=== PATIENT | female | born 1995 | race African-American/Black ===

== ENCOUNTER 2017-01-27 07:05 | Emergency (ER) | payer SELFPAY ==
[~2017-01-27] VITALS: Ht 170.2 cm; Wt 80.0 kg
[~2017-01-27 07:05] MED LIST: AMOX500T PO; Z.0.BCPILL PO
[2017-01-27 07:08] VITALS: BP 131/94; PULSE 88; RESP 16; TEMP 97.8; O2SAT 99
[2017-01-27] MEDS ORDERED: IBUP800T23 PO (07:42)
[2017-01-27] MEDS ORDERED: AMOX500C PO (07:42)
[2017-01-27] MEDS ORDERED: PERI0.126 SWISH-SPIT (07:42)
--- NOTE | 2017-01-27 07:43 | PD ---
HPI Chief Complaint: Oral / Dental Pain or Problem Time Seen by Provider: 07:39 Travel History International Travel<30 days: No Contact w/Intl Traveler<30days: No Traveled to known affect area: No History of Present Illness HPI 22-year-old female presents emergency Department with complaint of left upper dental pain 1 week. Also complaining of sore throat. Reports subjective fevers yesterday. Reports vomiting 2 days ago 1. No vomiting since. Denies lump in throat, difficulty swallowing, unusual drooling. No visual facial edema or erythema. Has been taking BC powder for symptom management. No known allergies. Symptoms are mild in severity. Has no other medical complaints. No other modifying factors or associated signs and symptoms. PFSH Past Medical History Medical History: Denies Significant Hx Developmental Delay: No Diminished Hearing: No Reproductive: Yes (UTERINE FIBROIDS) Immunizations Current: Yes ?: Not LMP: 11/25/16 Past Surgical History Surgical History: No Previous Surgery Social History Alcohol Use: No Tobacco Use: No Substance Use: No Allergies-Medications (Allergen,Severity, Reaction): Coded Allergies: No Known Allergies (Unverified , 12/03/14) Reported Meds & Prescriptions Reported Meds & Active Scripts Active Peridex Liq (Chlorhexidine Gluconate (Mouth) Liq) 0.12% Soln 15 Ml SWISH-SPIT BID 10 Days Ibuprofen 800 Mg Tab 800 Mg PO Q6HR PRN Amoxicillin 500 Mg Cap 500 Mg PO BID 10 Days Review of Systems Except as stated in HPI: all other systems reviewed are Neg Physical Exam Narrative GENERAL: Well-nourished, well-developed black female patient, in no acute distress; afebrile, nontoxic-appearing SKIN: Warm and dry. HEAD: Atraumatic. Normocephalic. No facial edema, erythema, tenderness on palpation. No lymphadenopathy. EYES: Pupils equal and round. No scleral icterus. No injection or drainage. ENT: Mucosa pink and moist. No erythema or exudates. No uvular edema. No uvular , palatal, or tonsillar deviation. Airway patent. EARS: Bilateral pinnae and external canals appear within normal limits. Bilateral tympanic membranes without erythema, dullness or perforation. MOUTH: Mucous membranes moist, no lesions, tongue and gums appear normal. Left upper first molar with tenderness on palpation; dental cavity noted. Surrounding gingiva is without erythema, edema, drainage. No obvious abscess noted. NECK: Trachea midline. No lymphadenopathy. CARDIOVASCULAR: Regular rate. RESPIRATORY: No accessory muscle use. GASTROINTESTINAL: Round. MUSCULOSKELETAL: No obvious deformities. No clubbing. No cyanosis. No edema. NEUROLOGICAL: Awake and alert. Oriented 3. No obvious cranial nerve deficits. Motor grossly within normal limits. Normal speech. PSYCHIATRIC: Appropriate mood and affect; insight and judgment normal. Data Data Last Documented VS Vital Signs Date Time Temp Pulse Resp B/P (MAP) Pulse Ox O2 Delivery O2 Flow Rate FiO2 01/27/17 07:08 97.8 88 16 131/94 (106) 99 MDM Medical Decision Making Medical Screen Exam Complete: Yes Emergency Medical Condition: Yes Medical Record Reviewed: Yes Differential Diagnosis Dentalgia, dental abscess, dental cavities, gingivitis, less likely peritonsillar abscess Narrative Course 22-year-old female with tooth pain to the left upper first molar. No facial edema or erythema. Patient is afebrile and nontoxic-appearing. Patient states she has a dentist she can follow-up with. Amoxicillin, ibuprofen, Magic mouthwash prescribed for home. Instructed patient to follow up with dentist. Instructed patient to follow up with primary care provider. Patient verbalizes understanding and agreement with treatment plan. Patient is medically cleared and stable for discharge. Discussed reasons to return to the emergency department. Patient agrees with treatment plan. The patients vital signs are stable and the patient is stable for outpatient follow-up and treatment. Patient discharged home, stable and in no acute distress. Diagnosis Primary Impression: Tooth pain Referrals: Dentist Primary Care Physician Patient Instructions: Dental Abscess (ED), Dental Caries (ED), General Instructions, Toothache (ED) Departure Forms: Tests/Procedures Additional Instructions: Complete full course of antibiotics Ibuprofen or Tylenol as directed and as needed to reduce pain and inflammation Use Peridex as directed for oral hygiene Warm or cool compresses to the affected area Follow-up with dentist Follow-up with primary care provider Return to emergency department immediately with worsening of symptoms Med/Other Pt SpecificInfo: Prescription(s) given Scripts Chlorhexidine Gluconate (Mouth) Liq (Peridex Liq) 0.12% Soln 15 ML SWISH-SPIT BID for 10 Days, #300 ML 0 Refills Prov: Yesenia Solano 01/27/17 Ibuprofen (Ibuprofen) 800 Mg Tab 800 MG PO Q6HR Y for PAIN, #30 TAB 0 Refills Prov: Yesenia Solano 01/27/17 Amoxicillin (Amoxicillin) 500 Mg Cap 500 MG PO BID for Infection for 10 Days, #20 CAP 0 Refills Prov: Yesenia Solano 01/27/17 Disposition: 01 DISCHARGE HOME Condition: Stable Yesenia Solano Jan 27, 2017 07:43
== END 2017-01-27 07:55 | disposition home or self-care (01) ==
LOC: NEPD 07:05
DX: K08.89 Other specified disorders of teeth and supporting structures (principal); J02.9 Acute pharyngitis, unspecified
CPT/HCPCS: 99283

== ENCOUNTER 2017-04-11 14:19 | Emergency (ER) | payer SELFPAY ==
[~2017-04-11 14:19] MED LIST changes: +AMOX500C PO; -AMOX500T PO; +IBUP1TAB7 PO; +PERI0.126 SWISH-SPIT; -Z.0.BCPILL PO
[2017-04-11 14:22] VITALS: BP 126/71; PULSE 93; RESP 16; TEMP 98.8; O2SAT 96
[2017-04-11] MEDS ORDERED: AMOX875T2 PO (15:04)
--- NOTE | 2017-04-11 15:07 | PD ---
HPI Chief Complaint: Oral / Dental Pain or Problem Time Seen by Provider: 14:48 Travel History International Travel<30 days: No Contact w/Intl Traveler<30days: No Traveled to known affect area: No History of Present Illness HPI 22-year-old female presents emergency department for evaluation of pain associated with tooth #4. Patient states she aware that she needs a root canal to this tooth. Patient states the tooth is infected couple months ago and the infection is coming back. Patient states that she has insurance that will be effective at getting any urine and she is going to follow up in the canal at that point. Patient states the pain started yesterday morning. She denies any fever, chills, malaise, chest pain, shortness breath, nausea, vomiting, diarrhea. PFSH Past Medical History Medical History: Denies Significant Hx Developmental Delay: No Diminished Hearing: No Reproductive: Yes (UTERINE FIBROIDS) Immunizations Current: Yes ?: Not Past Surgical History Surgical History: No Previous Surgery Social History Alcohol Use: Yes (OCCASIONALLY) Tobacco Use: No Substance Use: No Allergies-Medications (Allergen,Severity, Reaction): Coded Allergies: No Known Allergies (Unverified Adverse Reaction, Unknown, 04/11/17) Reported Meds & Prescriptions Reported Meds & Active Scripts Active No Active Prescriptions or Reported Medications Review of Systems Except as stated in HPI: all other systems reviewed are Neg Physical Exam Narrative GENERAL: Well-nourished, well-developed 22-year-old female patient in no acute distress. Nontoxic appearing. SKIN: Focused skin assessment warm/dry. HEAD: Normocephalic. Atraumatic. EYES: No scleral icterus. No injection or drainage. MOUTH: Erythema and gingival edema noted superior to tooth #4. Mucous membranes moist. NECK: Supple, trachea midline. No JVD or lymphadenopathy. CARDIOVASCULAR: Regular rate and rhythm without murmurs, gallops, or rubs. RESPIRATORY: Breath sounds equal bilaterally. No accessory muscle use. GASTROINTESTINAL: Abdomen soft, non-tender, nondistended. MUSCULOSKELETAL: No cyanosis, or edema. BACK: Nontender without obvious deformity. No CVA tenderness. Data Data Last Documented VS Vital Signs Date Time Temp Pulse Resp B/P (MAP) Pulse Ox O2 Delivery O2 Flow Rate FiO2 04/11/17 14:22 98.8 93 16 126/71 (89) 96 MDM Medical Decision Making Medical Screen Exam Complete: Yes Emergency Medical Condition: Yes Differential Diagnosis Differential diagnoses include but are not limited to dental abscess, dentalgia , pulpitis, gingivitis Narrative Course 22-year-old female presents emergency department for evaluation of dentalgia associated with the tooth that she is aware she needs a root canal. Patient states the pain started yesterday. Patient was treated a couple months ago for an infection in the same tooth. Patient states she still has the chlorhexidine mouthwash, she just needs the anabiotic prescription. Patient will be given an antibiotic. She will be discharged home with instructions to follow-up with the dentist. Patient states she will follow up after the first of the year when her insurance kicks in. Diagnosis Primary Impression: Dental abscess Referrals: [facility] Patient Instructions: Dental Abscess (ED), General Instructions Additional Instructions: Please return to emergency department if your symptoms return or worsen. Follow up with dentist. Take medications as prescribed. Med/Other Pt SpecificInfo: Prescription(s) given Scripts Amoxicillin-Clavulanate (Amoxicillin-Clavulanate) 875-125 mg Tab 875 MG PO BID for Infection for 7 Days, TAB 0 Refills not for use in Cr[facility] <30 mL/minute Prov: eMena Parker 04/11/17 Disposition: 01 DISCHARGE HOME Condition: Stable Meena Parker Apr 11, 2017 15:07
== END 2017-04-11 15:19 | disposition home or self-care (01) ==
LOC: PHEFT 14:19
DX: K04.7 Periapical abscess without sinus (principal)
CPT/HCPCS: 99283